=== PATIENT | male | born 1945 | race Caucasian/White ===

== ENCOUNTER → 2018-02-03 | Outpatient (CLI) | payer MEDICARE, OTHER | END | disposition home or self-care (01) | LOC: CDC 12:10 | DX: Z01.810 Encounter for preprocedural cardiovascular examination (principal); K40.90 Unilateral inguinal hernia, without obstruction or gangrene, not specified as recurrent | CPT/HCPCS: 93000 ==

== ENCOUNTER 2018-04-19 10:36 | Day surgery (SDC) | payer OTHER ==
[~2018-04-19] VITALS: Ht 190.5 cm; Wt 61.6 kg
[~2018-04-19 10:36] MED LIST: CIPRO500 MG PO; DIFLUCAN200 MG PO; FLOMAX0.4 MG PO; LIPITOR20 MG PO; NEURONTIN100 MG PO
[2018-04-19 11:36] VITALS: BP 140/72
[2018-04-19] MEDS ORDERED: COLACE100 MG PO (15:05)
[2018-04-19] MEDS ORDERED: ONDANSETRON HCL8 MG PO (15:05)
[2018-04-19] MEDS ORDERED: DILAUDID4 MG PO (15:05)
[2018-04-19 16:48] VITALS: BP 161/70
[2018-04-19 19:30] VITALS: BP 101/50
[2018-04-19 22:32] VITALS: BP 134/63
[2018-04-20 03:30] VITALS: BP 139/66
[2018-04-20 06:00] LABS: HEMATOCRIT 36.7 % (38.0-50.0); HEMOGLOBIN 12.4 G/DL (12.5-16.6); MCH 31.2 PG (29.0-34.0); MCHC 33.8 G/DL (30.0-36.0); MCV 92.4 FL (86-99); PLATELET COUNT 167 K/uL (156-360); RBC DIS.WIDTH-CV 13.2 % (11.8-14.6); RBC DIS.WIDTH-SD 44.8 % (39-53); RED BLOOD COUNT 3.97 M/uL (4.00-5.50); WHITE BLOOD COUNT 9.9 K/uL (4.1-10.2)
[2018-04-20 06:22] LABS: CHLORIDE 105 MEQ/L (99-109); CREATININE 0.7 MG/DL (0.6-1.3); GFR ESTIMATE (CALCULATED) > 59 mL/min/ (58.99-99999); GLUCOSE 111 mg/dL (70-99); POTASSIUM 3.5 MEQ/L (3.7-5.4); SODIUM 138 MEQ/L (136-147); UREA NITROGEN (BUN) 12 mg/dL (9-23)
[2018-04-20 08:14] VITALS: BP 114/87
[2018-04-21] MEDS ORDERED: INCRUSE ELLI62.5 MCG IH (05:48)
[2018-04-21] MEDS ORDERED: VENTOLIN HFA18 GM IH (05:48)
[2018-04-21] MEDS ORDERED: COLACE100 MG PO (05:51)
[2018-04-21] MEDS ORDERED: TYLENOL325 M2 PO (11:24)
[2018-04-21] MEDS ORDERED: FLUCONAZOLE200 MG PO (11:24)
[2018-04-21] MEDS ORDERED: ELIQUIS5 MG PO (14:03)
== END 2018-04-20 11:08 | disposition home or self-care (01) ==
LOC: SDC 10:36 → ENRESERV 14:53 → 2EAST 15:06 → 2SOUTH 15:06 → ENRESERV 15:12 → SDC 15:20 → 2EAST 16:38
PROVIDERS: Physician Assistant Surgical
PROC: 0YU54JZ Supplement Right Inguinal Region with Synthetic Substitute, Percutaneous Endoscopic Approach (ICD-10-PCS; principal; 2018-04-19)
DX: K40.90 Unilateral inguinal hernia, without obstruction or gangrene, not specified as recurrent (principal); R33.9 Retention of urine, unspecified; J44.9 Chronic obstructive pulmonary disease, unspecified; E78.5 Hyperlipidemia, unspecified; F17.200 Nicotine dependence, unspecified, uncomplicated
CPT/HCPCS: 80048; 85027; G0378; J0131; J0330; J0690; J1100; J1170; J2405; J2710; J3010; J7643

== ENCOUNTER 2018-04-21 01:58 | Observation (INO) | payer OTHER ==
[~2018-04-21] VITALS: Ht 190.5 cm; Wt 66.1 kg
[~2018-04-21 01:58] MED LIST changes: +COLACE100 MG PO; +DILAUDID4 MG PO; +ONDANSETRON HCL8 MG PO
[2018-04-21 02:36] LABS: BASOPHIL (%) 0.4 % (0-1); EOSINOPHIL (%) 0.9 % (0-5); EOSINOPHIL COUNT 0.1 K/uL (0-0.3); HEMATOCRIT 32.8 % (38.0-50.0); HEMOGLOBIN 11.3 G/DL (12.5-16.6); IMMATURE GRANULOCYTE (%) 0.3 % (0.0-0.7); LYMPHOCYTE (%) 22.3 % (15-42); LYMPHOCYTE COUNT 1.8 K/uL (1.0-2.8); MCH 31.8 PG (29.0-34.0); MCHC 34.5 G/DL (30.0-36.0); MCV 92.4 FL (86-99); MONOCYTE (%) 8.9 % (3-12); MONOCYTE COUNT 0.7 K/uL (0-0.8); NEUTROPHIL (%) 67.2 % (45-76); NEUTROPHIL COUNT 5.3 K/uL (1.8-6.4); PLATELET COUNT 155 K/uL (156-360); RBC DIS.WIDTH-CV 13.2 % (11.8-14.6); RBC DIS.WIDTH-SD 45.1 % (39-53); RED BLOOD COUNT 3.55 M/uL (4.00-5.50); WHITE BLOOD COUNT 7.9 K/uL (4.1-10.2)
[2018-04-21 02:46] LABS: ALBUMIN 3.4 g/dL (3.2-4.8); CHLORIDE 107 mEq/L (99-109); POTASSIUM 3.5 mEq/L (3.7-5.4); SODIUM 138 mEq/L (136-147)
[2018-04-21 02:49] LABS: GLUCOSE 143 mg/dL (70-99); TOTAL PROTEIN 5.9 g/dL (6.4-8.3)
[2018-04-21 02:51] LABS: TOTAL BILIRUBIN 0.7 mg/dL (0.0-1.0)
[2018-04-21 02:52] LABS: ALKALINE PHOSPHATASE 50 IU/L (3-129); GFR ESTIMATE (CALCULATED) > 59 mL/min/ (58.99-99999)
[2018-04-21 02:53] LABS: UREA NITROGEN (BUN) 10 mg/dL (9-23)
[2018-04-21 02:54] LABS: AST (GOT) 31 IU/L (2-34)
[2018-04-21 02:55] LABS: ALT (GPT) 11 IU/L (3-49); CREATININE 1.2 mg/dL (0.6-1.3)
[2018-04-21 03:01] LABS: TROP-I INTERPRETATION NEGATIVE; TROPONIN-I < 0.01 ng/mL (0.0-0.30)
[2018-04-21] MEDS ORDERED: INCRUSE ELLI62.5 MCG IH (05:48)
[2018-04-21] MEDS ORDERED: VENTOLIN HFA18 GM IH (05:48)
[2018-04-21] MEDS ORDERED: COLACE100 MG PO (05:51)
[2018-04-21 06:22] VITALS: BP 179/84
[2018-04-21 07:40] VITALS: BP 144/67
[2018-04-21] MEDS ORDERED: TYLENOL325 M2 PO (11:24)
[2018-04-21] MEDS ORDERED: FLUCONAZOLE200 MG PO (11:24)
[2018-04-21 11:31] VITALS: BP 120/62
[2018-04-21 12:03] LABS: TROP-I INTERPRETATION NEGATIVE; TROPONIN-I < 0.01 ng/mL (0.0-0.30)
[2018-04-21] MEDS ORDERED: ELIQUIS5 MG PO (14:03)
[2018-04-21 15:32] VITALS: BP 145/81
== END 2018-04-21 16:46 | disposition home or self-care (01) ==
LOC: EME 01:58 → EDOF 05:22 → ENRESERV 05:30 → 4SOUTH 06:05
PROVIDERS: Emergency Medicine; Hospitalist
PROC: B246ZZZ Ultrasonography of Right and Left Heart (ICD-10-PCS; principal; 2018-04-21)
DX: I26.99 Other pulmonary embolism without acute cor pulmonale (principal); Z98.890 Other specified postprocedural states; G89.18 Other acute postprocedural pain; J44.9 Chronic obstructive pulmonary disease, unspecified; G89.29 Other chronic pain; Q85.00 Neurofibromatosis, unspecified; F17.210 Nicotine dependence, cigarettes, uncomplicated
CPT/HCPCS: 71046; 71275; 80053; 84484; 85025; 85379; 93005; 93306; 94640; 94799; G0378; J1644; J7040